=== PATIENT | male | born 1945 | race Caucasian/White ===

== ENCOUNTER 2019-03-14 06:29 | Day surgery (SDC) | payer SELFPAY ==
[2019-03-09 12:54] VITALS: BMI 25.7
[2019-03-14] MEDS ORDERED: PROPOFOL 20 ML ONE ×6 (07:02→10:43)
[2019-03-14] MEDS ORDERED: MIDAZOLAM HCL 2 MG/2 ML SINGLE DOSE VIAL ONE (07:02)
[2019-03-14] MEDS ORDERED: TETRACAINE 0.5% OPHTH SOLN 2 ML BOTTLE ONE (07:12)
[2019-03-14] MEDS ORDERED: LIDOCAINE 1%/EPI 1:100000 (20 ML MULTI DOSE VIAL) ONE ×2 (07:12→07:43)
[2019-03-14] MEDS ORDERED: POVIDONE-IODINE 5% OPHTHALMIC PREP 30 ML SOLUTION ONE (07:12)
[2019-03-14] MEDS ORDERED: ERYTHROMYCIN 0.5% OPHTHALMIC OINTMENT 3.5 GM TUBE ONE (07:12)
[2019-03-14] MEDS ORDERED: ceFAZolin SODIUM 1 GM VIAL ONE (08:11)
[2019-03-14 12:47] VITALS: BP 149/87; PULSE 62; TEMP 97.5
--- NOTE | 2019-03-14 13:14 | OP ---
DATE OF OPERATION: 03/14/2019 PREOPERATIVE DIAGNOSIS: Fat prominence and dermatochalasis with excess laxity bilateral lower lids. POSTOPERATIVE DIAGNOSIS: Fat prominence and dermatochalasis with excess laxity bilateral lower lids. PROCEDURE: Transconjunctival blepharoplasty with fat sculpting temporally and transposition of fat nasally and centrally, skin flap with excision of excess skin or an orbicularis plication, and lateral canthopexy both eyes. SURGEON: Manfred Johnson MD ANESTHESIA: Local with sedation. COMPLICATONS: None. ESTIMATED BLOOD LOSS: 2-3 mL. OPERATION REPORT: Patient was brought to the operating room, placed on the operating room table. Vital signs monitored by Anesthesia. Tetracaine was placed in both eyes. In the holding area preoperatively, the patient had been marked in the upright position demarcating the tear trough and the fat pads. A time-out was performed. Tetracaine was placed in both eyes, and transconjunctival injection of 2% Xylocaine with 1:100,000 epinephrine was given for 1 mL in each of the nasal, central, and temporal fat pockets. Massage was applied for hemostasis. The patient was prepped and draped in the usual sterile fashion exposing both eyes. Lateral canthal lines were marked as well, and a small amount of anesthetic was given at the lateral canthus down to periosteum. Attention was now turned to the eyelids, and the same procedure was performed bilaterally. The lower lid was distracted with a Desmarres retractor. The globe was ballotted up superiorly with an eyelid plate, and the transconjunctival incision was made nasally and centrally in the eyelid, and fat prolapsed exposing the central and nasal fat pockets. The inferior oblique was meticulously observed and identified, and then, the fat pockets in the nasal and central fat pockets were tethered were further from the inferior oblique and from surrounding fascial tissues with blunt dissection with a Q-Tip and with a Barton needle until the fat pedicles were adjusted freely, and they could be moved easily behind the inferior oblique with attachment to it. At this point, the orbital rim was identified, Desmarres was removed, and a second retractor was used to retract the muscle layer. The muscle layer was incised at the inferior orbital rim, and then, it was elevated with a Linn periosteal elevator in the supraperiosteal plane down beyond the tear trough nasally and inferiorly elevating the orbicularis off of its origin at the inferior tear trough. A double-arm 5-0 Prolene was then passed from the skin below the tear trough underneath the orbicularis ascending through the internal wound, and then, it was used in a mattress fashion to secure both entire above the nasal and central pat pockets as one large fat pad, and then, the second arm was passed through the skin in the reverse direction exiting through the skin beyond the tear trough. The suture was then pulled, advancing the nasal and central fat pedicles into the created pocket in the tear trough and smoothing out that lid cheek junction. Each of these sutures were tied through a small piece of Telfa to maintain the fat pockets in the appropriate position. With both eyelids at this point, the temporal fat pocket was approached with a Desmarres and an eyelid plate. It was unroofed, and it was sculpted until the general pressure on the globe the temporal portion of the eyelid appeared to be smooth without excess bulging, and this was checked several times. Meticulous attention was paid to hemostasis throughout the case. Once transposition of the fat and the fat sculpting was complete, the lids were distracted upwards. It should be noted that during this portion of the case, the conjunctiva retractor was secured with 4-0 silk sutures and clamped with hemostats to protect the cornea and to elevate the tissues during dissection. At this point, a line was marked subciliary in both eyelids extending out to the lateral canthus, and then, 2-3 mL of 2% Xylocaine with 1:100,000 epinephrine was injected in each eyelid ballooning up the skin, and about 5-10 minutes was allowed to lapse for hemostasis. A 4-0 silk dry dressing was passed through the margin laterally in both lower lids and clamped with hemostats. The following procedure was performed bilaterally. The subciliary incision was incised across the eyelid, extending just to the lateral canthus and beyond. The skin flap was meticulously dissected with Kalli scissors and meticulous attention was paid to maintain hemostasis, and this skin flap was carried down to the inferior orbital rim shy of the Telfa that had previously been placed. Following this, the lateral orbicularis was incised down to the orbital rim at the lateral canthus, and the lateral canthal tendon was identified at the lateral end of the eyelid and was plicated to the orbital rim with a double-arm 5-0 Prolene suture, plating these lids which were extremely lax. Following that, the orbicularis was plicated with a 5-0 Vicryl again to the lateral portion of the orbital rim tightening the orbicularis, and at this point, the traction sutures had been released, and the skin was meticulously unfolded and tailored so that there would be shortening of the skin and the lower lid without excess shortening when the patient was in the upright position. Skin was tailored, and then, it was sutured into position with interrupted 6-0 nylon laterally and with running 6-0 nylon throughout the lower lid incisions. Erythromycin ointment was then placed in the eye without pressure and on the sutures of the lower lid extending to the lateral canthus and on the Telfa pads, and the previously placed marginal traction sutures were secured to the forehead with Mastisol and Steri-Strips, placing the lids on stretch, and the patient was taken to the recovery room in stable condition. There were no complications. MANFRED JOHNSON M.D. [id number]
== END 2019-03-14 12:25 | disposition home or self-care (01) ==
LOC: FASU 06:29
PROVIDERS: ATTEND Ophthalmology
PROC: 080Q0ZZ Alteration of Right Lower Eyelid, Open Approach (ICD-10-PCS; 2019-03-14)
PROC: 080R0ZZ Alteration of Left Lower Eyelid, Open Approach (ICD-10-PCS; principal; 2019-03-14 08:27)
DX: H02.832 Dermatochalasis of right lower eyelid (principal); H02.835 Dermatochalasis of left lower eyelid; H02.89 Other specified disorders of eyelid; H02.532 Eyelid retraction right lower eyelid; H02.535 Eyelid retraction left lower eyelid
CPT/HCPCS: 94760

== ENCOUNTER 2019-12-12 08:54 | Day surgery (SDC) | payer OTHER ==
[2019-12-06 15:22] VITALS: BMI 25.0
[2019-12-12] MEDS ORDERED: ERYTHROMYCIN 0.5% OPHTHALMIC OINTMENT 3.5 GM TUBE ONE (10:38)
[2019-12-12] MEDS ORDERED: TETRACAINE 0.5% OPHTH SOLN 2 ML BOTTLE ONE (10:38)
[2019-12-12] MEDS ORDERED: POVIDONE-IODINE 5% OPHTHALMIC PREP 30 ML SOLUTION ONE (10:39)
[2019-12-12] MEDS ORDERED: LIDOCAINE 1%/EPI 1:100000 (20 ML MULTI DOSE VIAL) ONE (10:39)
[2019-12-12] MEDS ORDERED: MIDAZOLAM HCL 2 MG/2 ML SINGLE DOSE VIAL ONE ×2 (12:10)
[2019-12-12] MEDS ORDERED: PROMETHAZINE HCL 25 MG/1 ML VIAL IVPUSH PRN (13:18)
[2019-12-12] MEDS ORDERED: oxyCODONE HCL 5 MG TABLET PO PRN ×2 (13:18)
[2019-12-12] MEDS ORDERED: ONDANSETRON 4 MG/2 ML VIAL IVPUSH PRN (13:18)
[2019-12-12 14:59] VITALS: BP 122/68; PULSE 56; TEMP 97.7
--- NOTE | 2019-12-12 15:22 | OP ---
DATE OF OPERATION: 12/12/2019 PREOPERATIVE DIAGNOSIS: Involutional ptosis, left upper lid also aberrant regeneration, left. POSTOPERATIVE DIAGNOSIS: Involutional ptosis, left upper lid also aberrant regeneration, left. PROCEDURE: Quiroga muscle resection, left upper lid. SURGEON: Manfred Johnson MD ANESTHESIA: Local with sedation. COMPLICATIONS: None. ESTIMATED BLOOD LOSS: 1-2 mL. OPERATIVE REPORT: Patient brought to the operating room. Placed on the operating room table. Vital signs monitored by Anesthesia. Tetracaine was placed in both eyes, and the time-out was performed verifying that it was the left eye. After intravenous sedation was administered, subconjunctival injection of 2% Xylocaine, 1:100,000 epinephrine for about 0.5 mL was injected at the superior tarsus, and 0.5 mL was injected subcutaneously in the central left upper lid. Massage was applied for hemostasis. Patient was prepped and draped in the usual sterile fashion exposing both eyes; 4-0 silk traction suture was placed through the central lid margin. The right eye was manually closed. Lid was everted over Desmarres retractor. A caliper that was checked against a ruler measuring 4.25 mm was now used to measure 4.25 mm to the top of the central tarsus, and additional cote were placed 7 mm nasal and temporal to this. A 6-0 silk suture was passed through the conjunctiva. At this point, and then the conjunctiva was elevated off of the overlying levator with forceps, and the retractor was removed. The 6-0 silk suture was used in a 4-prong fashion to elevate the conjunctiva at Quiroga muscle, which doubled over into an 8.5-mm resection. Putterman mullerectomy clamp was then placed over the incorporated tissue with a 6-0 silk and was closed and then the incorporating tissue was excised with a 15 blade being careful not to cut any of the other sutures. Prior to incising it, a double-arm 6-0 plain running was passed in a mattress fashion 1.5 mm below the clamp on either side and then the incorporated tissue was resected. This was run from temporal to nasal and then it was run back from nasal to temporal; however, the suture broke in the middle and, therefore, had to be replaced with running 6-0 plain suture closing conjunctiva and Quiroga muscle. Each arm of this 6-0 plain was brought out through the conjunctiva full thickness at the nasal and temporal ends of the incision and then each arm of the suture was tied on the skin tight. The lid was everted demonstrating complete closure of the wound, and the mattress suture was removed completing the Quiroga muscle resection. Erythromycin ointment was placed in the eye and on the sutures nasally and temporally, and the patient was taken to the recovery room in stable condition. MANFRED JOHNSON M.D. [id number]
--- NOTE | 2019-12-20 15:25 | PATH ---
Surgical Pathology Report Patient Name: EDWAR CAMPA [facility]. Rec. 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 Comment: H&E stained tissue fragments show soft tissue, glandular structure and lymphoid components. The lymphoid components seem to be diffusely distributed and monotonous small mature-appearing lymphocytes. No overt nodular arrangement is noted. IHC study demonstrated almost all the lymphoid cells are CD5 positive, CD20 and PAX5 positive B cells. CD23 stain is weak and equivocal on these B cells. These B cells are negative for CD10, BCL-1 and BCL-6. They are positive for BCL-2 with very low (less than 1%) positivity for Ki-67 stain. The overall histologic and immunophenotypic findings represent a low-grade CD5 positive B cell lymphoma. 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 Correlation with a comprehensive bone marrow morphologic examination, CBC data/blood smear, cytogenetic study (including karyotyping and FISH study for CLL panel) and other relevant clinical and laboratory data (molecular study for p53 and IGVH mutations) is recommended for further evaluation and adequate characterization. This case was sent to [facility], [place], [place] for hematopathology consultation. The above diagnosis reflects the opinion of Julio Nelson, from [facility], [place], [place]. See integrated oncology report ([id number]) for additional details. Electronically Signed Massiel Leslie M.D. Addendum Reported: 12/21/2019 Addendum Diagnosis This case was discussed with Dr. Mercedes on December 21, 2019. Massiel Leslie M.D. Gross Description Received in formalin labeled "resection, left upper eyelid," is a 1.4 x 0.3 x 0.1 cm monroe, unoriented skin shave. The base is inked green and the specimen is serially sectioned. The specimen is entirely submitted in one cassette. 12/13/2019 saudi12/13/2019
== END 2019-12-12 14:59 | disposition home or self-care (01) ==
LOC: FASU 08:54
PROVIDERS: ATTEND Ophthalmology
PROC: 08BP0ZZ Excision of Left Upper Eyelid, Open Approach (ICD-10-PCS; principal; 2019-12-12 12:44)
DX: H02.422 Myogenic ptosis of left eyelid (principal); G51.8 Other disorders of facial nerve
CPT/HCPCS: 88305-TC; 94760